=== PATIENT | male | born 1985 | race Caucasian/White ===

== ENCOUNTER 2023-07-01 21:41 | Emergency (ER) | payer OTHER, SELFPAY ==
[2023-07-01 22:37] VITALS: BP 143/86; PULSE 87; RESP 16; TEMP 36.7; O2SAT 98; BMI 25.8
== END 2023-07-02 02:20 | disposition left against medical advice (07) ==
PROVIDERS: Emergency Provider Emergency Medicine; PCP Nurse Practitioner Family
DX: R20.0 Anesthesia of skin (principal)
CPT/HCPCS: 99281

== ENCOUNTER 2025-02-11 04:18 | Emergency (ER) | payer SELFPAY ==
[2025-02-11 04:25] VITALS: BMI 24.0
[2025-02-11 04:30] VITALS: BP 126/74; PULSE 92; RESP 18; TEMP 37; O2SAT 97
[2025-02-11 04:32] VITALS: BP 150/94; PULSE 115; O2SAT 96
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
[2025-02-11 07:39] VITALS: BP 120/76; PULSE 62; RESP 18; TEMP 36.6; O2SAT 100
[2025-02-11 07:41] VITALS: BP 120/76; PULSE 62; RESP 18; TEMP 36.6; O2SAT 100
== END 2025-02-11 07:41 | disposition home or self-care (01) ==
PROVIDERS: Emergency Provider Emergency Medicine
DX: Z03.89 Encounter for observation for other suspected diseases and conditions ruled out (principal); Z65.3 Problems related to other legal circumstances
CPT/HCPCS: 99282; 99284